=== PATIENT | female | born 2000 | race Hispanic/Latino ===

== ENCOUNTER 2018-12-20 12:16 | Day surgery (SDC) | payer OTHER ==
[2018-12-20 12:46] VITALS: BP 123/76; TEMP 99; BMI 32.7
--- NOTE | 2018-12-20 13:10 | PDOC.LDHP ---
Labor and Delivery H&P Chief complaint: other (spotting) HPI: 18 y/o G1 at 32w2d presents with spotting when wiping since hving intercourse last night. Denies heavy VB, LOF, ctx, abdominal pain, or decreased FM. ROS neg for HEENT, CV, pulm, GI, , neuro, psych, skin, musculoskeletal, or constitutional symptoms other than mentioned above. OB History Details: First Current complications: none Past Medical History: None Current medications: pre- vitamins Previous surgical history: none Allergies/Adverse Reactions: Allergies Allergy/AdvReac Type Severity Reaction Status Date / Time No Known Allergies Allergy Unverified 12/20/18 12:38 Social history: none - Physical Exam Vital signs reviewed and normal: yes General: NAD, resting Lungs: nonlabored breathing Abdomen: gravid (140s, mod variability, + accels, no decels) Extremeties: no edema FHT: category 1 (140s, mod variability, + accels, no decels) [place] contractions every: none - Vaginal Exam cm dilated: 0 (tiny amount of old blood in vault) Effacement: 0% Station: -3 - Assessment 18 y/o G1 at 32w2d with spotting after intercourse. No e/o active bleeding or acute process. status reassuring with reactive NST. - Plan -: D/c home with precautions. Advised to keep all appointments.
== END 2018-12-20 13:35 | disposition home or self-care (01) ==
LOC: L&D/OP 12:16
PROVIDERS: ATTEND Obstetrics & Gynecology
DX: O26.853 Spotting complicating pregnancy, third trimester (principal); Z3A.32 32 weeks gestation of pregnancy

== ENCOUNTER 2019-02-13 15:45 | Inpatient (IN) | payer OTHER ==
[~2019-02-13 15:45] MED LIST: Bupivacaine/Epinephrine 0.25% 30 ML VIAL ONE; Bupivacaine/Epinephrine 0.5% 10 ML VIAL ONE
[2019-02-13] MEDS ORDERED: Lidocaine 1% (PF) 30 ML VIAL SC PRN (20:13)
[2019-02-13] MEDS ORDERED: Ibuprofen 800 MG TAB PO PRN (20:13)
[2019-02-13] MEDS ORDERED: hydrALAZINE 20 MG/ML VIAL SLOW IVP PRN (20:13)
[2019-02-13] MEDS ORDERED: NS / Oxytocin 40 units/1000ml 1,000 ML IV PRN (20:13)
[2019-02-13] MEDS ORDERED: HYDROcodone/Acetaminophen 5/325 mg Tablet PO PRN ×2 (20:13)
[2019-02-13] MEDS ORDERED: Ondansetron PF 4 MG/2 ML Vial IVP PRN (20:13)
[2019-02-13] MEDS ORDERED: Promethazine HCl 25 MG/ML VIAL IM PRN (20:13)
[2019-02-13] MEDS ORDERED: Butorphanol Tartrate 1 MG/ML VIAL SLOW IVP PRN (20:13)
[2019-02-13] MEDS ORDERED: Misoprostol 100 MCG TAB VAG SCH (20:15)
[2019-02-13] MEDS ORDERED: Lactated Ringer's 1,000 ML IV SCH (20:15)
[2019-02-13] MEDS ORDERED: Penicillin G Potassium 5 MILL.UNITS in Sodium Chloride 0.9% 100 ML IVPB SCH (20:15)
[2019-02-13 20:18] VITALS: BMI 33.9
[2019-02-13] MEDS: Lactated Ringer's 1,000 ML IV SCH (20:43)
[2019-02-13 20:50] LABS: Hemoglobin 13.2 g/dL (12.0-16.0); Mean Corpuscular HGB CONC 35.8 g/dL (32.0-36.0); Mean Corpuscular Hemoglobin 31.7 pg (25.0-35.0); Mean Corpuscular Volume 88.6 fL (78.0-98.0); Mean Platelet Volume 9.9 fL (7.4-10.4); Platelet Count 138 thou/uL (130-400); Red Blood Cell (RBC) Count 4.15 mill/uL (4.00-5.20); White Blood Cell (WBC) Count 10.5 thou/uL (4.8-10.8)
[2019-02-13 21:31] LABS: Syphilis Antibody Nonreactive (Nonreactive); Syphilis Antibody Index 0.03 S/CO (<1.00 Non-Reactive)
[2019-02-13 23:21] LABS: HBSAg Index 0.16 S/CO (0-0.99); Hep B Surf Ag Non-Reactive S/CO (NonReactive)
[2019-02-14] MEDS ORDERED: Fentanyl 4 mcg/Bup 0.1% Cadd 100 ML ONE ×3 (00:19→16:57)
[2019-02-14] MEDS: Misoprostol 100 MCG TAB VAG SCH ×3 (00:33→23:21)
[2019-02-14] MEDS: Lactated Ringer's 1,000 ML IV SCH ×4 (01:01→23:22)
[2019-02-14] MEDS: Penicillin G 2.5 MILL.units 2.5 MILL.UNITS in Premix Bag 1 BAG IVPB SCH ×5 (01:08→17:02)
[2019-02-14] MEDS ORDERED: Ondansetron PF 4 MG/2 ML Vial IVP PRN ×2 (01:17→18:00)
[2019-02-14] MEDS ORDERED: Acetaminophen 325 MG TAB PO PRN (01:17)
[2019-02-14] MEDS ORDERED: diphenhydrAMINE 50 MG/ML VIAL IVP PRN ×2 (01:17→18:00)
[2019-02-14] MEDS ORDERED: Naloxone HCl 0.4 mg/ml Vial IVP PRN ×4 (01:17→18:00)
[2019-02-14] MEDS ORDERED: Lactated Ringer's 500 ML IV PRN (01:17)
[2019-02-14] MEDS ORDERED: ePHEDrine/0.9% NaCl/PF SYRINGE 50 mg/10 ml SLOW IVP PRN (01:17)
[2019-02-14] MEDS ORDERED: Promethazine HCl 25 MG/ML VIAL IM PRN ×2 (01:17→18:00)
[2019-02-14] MEDS ORDERED: Communication Order-Pharmacy FS SCH ×2 (01:30→18:00)
[2019-02-14] MEDS: NS w/ Oxytocin 10 units 500 ML IV SCH ×2 (06:12→23:22)
[2019-02-14] MEDS: Fentanyl 4 mcg/Bupivacaine 0.1% Cassette 100 ML EPIDURAL SCH ×2 (09:09→17:00)
[2019-02-14] MEDS ORDERED: Ketorolac Tromethamine 30 MG/ML VIAL ONE ×2 (11:20→17:46)
[2019-02-14] MEDS ORDERED: Bicitra 30 ML UDCUP ONE (17:08)
[2019-02-14] MEDS ORDERED: MORPHINE 5 MG/10 ML PF VIAL ONE (17:19)
[2019-02-14] MEDS ORDERED: Oxytocin 10 UNITS/ML VIAL ONE ×2 (17:20)
--- NOTE | 2019-02-14 17:56 | PDOC.OPDEL ---
OB Operative/Delivery Note Delivery Dr/Surgeon: Francine Assist: Jeimy Pre-Delivery Diagnosis: arrest of dilation, non-reassuring tracing Procedure/Post Delivery Dx: primary low transverse CS Weeks gestation: 40 Anesthesia: epidural - Findings A Sex: male Weight: 6 lb 2 oz - 1 min: 8 - 5 min: 9 - Additional Findings/Plan Placenta delivered: manual removal (umbilical cord was thin. Normal tubes and ovaries.)
[2019-02-14] MEDS ORDERED: Promethazine HCl 25 MG SUPP PR PRN (18:00)
[2019-02-14] MEDS ORDERED: Ketorolac Tromethamine 30 MG/ML VIAL IVP PRN (18:00)
[2019-02-14] MEDS ORDERED: Naloxone HCl 0.4 mg/ml Vial IV PRN (18:00)
[2019-02-14] MEDS ORDERED: Ondansetron HCl/PF 4 MG/2 ML Vial IVP PRN (18:01)
[2019-02-14] MEDS ORDERED: L&D-Morphine 4 MG/ML VIAL SLOW IVP PRN (18:01)
[2019-02-14] MEDS ORDERED: HYDROmorphone 2 MG/ML VIAL SLOW IVP PRN (18:01)
[2019-02-14] MEDS ORDERED: Meperidine HCl/PF 25 MG/ML VIAL SLOW IVP PRN (18:01)
[2019-02-14] MEDS ORDERED: Ketorolac Tromethamine 30 MG/ML VIAL IVP SCH (18:15)
[2019-02-14] MEDS ORDERED: Azithromycin 500 MG in Sodium Chloride 0.9% 250 ML 250 ML IVPB ONE (18:45)
--- NOTE | 2019-02-14 19:21 | OP ---
DATE OF PROCEDURE: 02/14/2019 PREOPERATIVE DIAGNOSES: 1. A 18-year-old [place] female, G1, P0, at 41 weeks' gestation, status post labor induction, failure to progress at 7 cm and non-reassuring heart rate tracing. 2. GBS positive, receiving prophylaxis. POSTOPERATIVE DIAGNOSES: 1. A 18-year-old [place] female, G1, P0, at 41 weeks' gestation, status post labor induction, failure to progress at 7 cm and non-reassuring heart rate tracing. 2. GBS positive, receiving prophylaxis. PROCEDURE PERFORMED: Primary low transverse section without extension. STRAIGHT EDGER SURGEON: Imtiaz Munson MD ANESTHESIA: Epidural by Dr. Clifford. ESTIMATED BLOOD LOSS: 400 mL. COMPLICATIONS: None. COUNTS: Correct x2. ANTIBIOTICS: 2 g Ancef, then will receive 500 mg of Zithromax in PACU. FINDINGS: 1. Male , Apgars 8 and 9. weight 6 pounds 2 ounces. ROP presentation with significant caput noted. 2. Normal-appearing fallopian tubes, ovaries, and uterus. 3. Clear urine present in Segura catheter postprocedure and clear amniotic fluid noted. 4. Umbilical cord was somewhat thin and post-term appearing. DISPOSITION: Recovery room, stable. DESCRIPTION OF PROCEDURE: The patient previously received informed consent in regard to surgery. She was taken back to the operating room, where she received adequate dosing of her epidural. She was placed in supine position, prepped and draped in usual sterile fashion. Segura catheter was placed. A Pfannenstiel incision was made in the lower abdomen and was carried down the fascia. Fascia was nicked in the midline. Fascial incision was extended bilaterally using curved Aguilera scissors. The rectus fascia was dissected superiorly and inferiorly off the rectus muscle bellies, and the rectus muscle bellies were then divided in the midline. The peritoneal cavity was entered. Cali O retractor was placed. A 2-cm hysterotomy incision was made above the vesicouterine peritoneal reflection, and this was extended via finger fractionation. The baby was delivered in the vertex presentation. The mouth and nares of the infant were bulb suctioned on the abdomen. The cord was doubly clamped, cut, and the baby was handed to the bladimir team in attendance. The usual cord blood was obtained. Placenta was manually extracted. The uterus was curetted of any remaining placental fragments with a dry laparotomy sponge. Uterus was then closed in a locking fashion with #1 Monocryl suture. Good hemostasis was confirmed. Pelvis was irrigated and suctioned to gain hysterotomy. Hemostasis was confirmed. The rectus muscle bellies were then inspected and noted to be hemostatic prior to fascial closure. The fascia was closed with 0 PDS suture x2 in running continuous fashion. Subcutaneous tissue was irrigated and noted to be hemostatic prior to skin approximation with neil. The surgery was terminated. No anesthetic or surgical complications occurred. Job ID: [id number]
[2019-02-14] MEDS ORDERED: Bisacodyl 10 MG SUPP PR PRN (20:50)
[2019-02-14] MEDS ORDERED: HYDROcodone/Acetaminophen 5/325 mg Tablet PO PRN (20:50)
[2019-02-14] MEDS ORDERED: Simethicone Chewable 80 MG TAB PO PRN (20:50)
[2019-02-14] MEDS ORDERED: Misoprostol 200 MCG TAB PR PRN (20:50)
[2019-02-14] MEDS ORDERED: diphenhydrAMINE 25 MG CAP PO PRN (20:50)
[2019-02-14] MEDS ORDERED: hydrALAZINE 20 MG/ML VIAL SLOW IVP PRN (20:50)
[2019-02-14] MEDS ORDERED: Lanolin Ointment 7 GM TUBE TOP PRN (20:50)
[2019-02-14] MEDS ORDERED: NS / Oxytocin 40 units/1000ml 1,000 ML IV SCH (20:50)
[2019-02-14] MEDS: Ibuprofen 800 MG TAB PO SCH (23:18)
[2019-02-14] MEDS: Docusate Calcium (SURFAK) 240 MG CAP PO SCH (23:18)
[2019-02-15 06:16] LABS: Hemoglobin 10.3 g/dL (12.0-16.0); Mean Corpuscular HGB CONC 34.3 g/dL (32.0-36.0); Mean Corpuscular Hemoglobin 31.3 pg (27.0-31.0); Mean Corpuscular Volume 91.3 fL (78.0-98.0); Mean Platelet Volume 9.6 fL (7.4-10.4); Platelet Count 102 thou/uL (130-400); RBC Distribution Width 12.2 % (11.5-14.5); Red Blood Cell (RBC) Count 3.29 mill/uL (4.20-5.40); White Blood Cell (WBC) Count 12.6 thou/uL (4.8-10.8)
[2019-02-15] MEDS: Ibuprofen 800 MG TAB PO SCH ×3 (06:17→22:48)
[2019-02-15] MEDS ORDERED: Adacel (T-DAP) 0.5 ML SYRINGE IM ONE (09:00)
[2019-02-15] MEDS: Prenatal Vitamin 1 TAB PO SCH (09:29)
[2019-02-15] MEDS: Docusate Calcium (SURFAK) 240 MG CAP PO SCH ×2 (09:29→22:48)
--- NOTE | 2019-02-15 12:14 | PDOC.PP ---
Post Progress Note Post Day #: 1 PO intake tolerated: yes Flatus: yes Ambulation: yes Vital Signs (12 hours) Temp Pulse Resp BP Pulse Ox 02/15/19 12:06 98.6 F 92 20 115/68 02/15/19 08:27 98.3 F 67 20 110/66 95 02/15/19 05:57 97.6 F 75 16 119/74 02/15/19 00:20 98.7 F 76 18 121/78 96 Weight Weight 168 lb Result Diagrams: 02/15/19 05:00 Additional Labs: Post Labs Blood Type O POSITIVE 02/13/19 21:33 Hep Bs Antigen Non-Reactive S/CO (NonReactive) 02/13/19 20:41 - Assessment/Plan Post op day 1 from primary c/s. failure to progress and non reassuring fhrt. doing well. routine care ...
[2019-02-16] MEDS: Ibuprofen 800 MG TAB PO SCH ×2 (06:18→13:59)
--- NOTE | 2019-02-16 08:01 | PDOC.PP ---
Post Progress Note Post Day #: 2 Subjective: ready to go home. Vital Signs (12 hours) Temp Pulse Resp BP 02/16/19 04:55 97.6 F 75 16 131/83 02/16/19 01:12 97.5 F L 82 16 115/72 Weight Weight 168 lb Result Diagrams: 02/15/19 05:00 Additional Labs: Post Labs Blood Type O POSITIVE 02/13/19 21:33 Hep Bs Antigen Non-Reactive S/CO (NonReactive) 02/13/19 20:41 - Assessment/Plan post op day 2. primary c section. doing well d/c home . f/u in 1 and 6 weeks.
[2019-02-16 08:42] VITALS: BP 116/77; TEMP 97.8
[2019-02-16] MEDS: Prenatal Vitamin 1 TAB PO SCH (09:19)
[2019-02-16] MEDS: Docusate Calcium (SURFAK) 240 MG CAP PO SCH (09:20)
== END 2019-02-16 15:30 | disposition home or self-care (01) | DRG 788 ==
LOC: L&D 19:45 → L&D-LIB 02-14 19:54 → 3SW 02-14 23:41 → EDSTATUS 02-17 15:44
PROVIDERS: ADMIT Obstetrics & Gynecology; ATTEND Obstetrics & Gynecology
PROC: 10D00Z1 Extraction of Products of Conception, Low, Open Approach (ICD-10-PCS; principal; 2019-02-14)
DX: O62.1 Secondary uterine inertia (principal); O76 Abnormality in fetal heart rate and rhythm complicating labor and delivery; O99.824 Streptococcus B carrier state complicating childbirth; Z3A.40 40 weeks gestation of pregnancy; Z37.0 Single live birth
CPT/HCPCS: 36415; 51702; 85027; 86780; 86850; 86900; 86901; 87340; 99282; J0456; J0595; J0690; J1200; J1885; J2274; J2540; J2590; J3490; J7050

== ENCOUNTER 2019-05-02 19:18 | Emergency (ER) | payer OTHER ==
[2019-05-02] MEDS ORDERED: Dexamethasone 10 MG/ML VIAL ONE (20:25)
== END 2019-05-02 20:27 | disposition home or self-care (01) ==
LOC: ERS 19:18
DX: J02.9 Acute pharyngitis, unspecified (principal)
CPT/HCPCS: 87081; 87430; J1100